=== PATIENT | male | born 1935 | race Caucasian/White ===

== ENCOUNTER 2016-06-26 09:28 | Day surgery (SDC) | payer MEDICARE ==
[~2016-06-26 09:28] MED LIST: ACETAMINOPHEN 1000MG/100 ML PREMIX IV ONE
[2016-06-26] MEDS ORDERED: FENTANYL PF 100MCG/2ML VIAL IV ONE (14:00)
[2016-06-26] MEDS ORDERED: MIDAZOLAM HCL 2MG/2ML VIAL IV ONE (14:00)
[2016-06-26] MEDS ORDERED: LIDOCAINE 2% MDV (20MG/ML) 20ML VIAL IV ONE (14:00)
[2016-06-26] MEDS ORDERED: PROPOFOL 10 MG/ML VIAL IV ONE (14:00)
[2016-06-26] MEDS ORDERED: LIDOCAINE PF 0.5% (5MG/ML) 50ML VIAL IV ONE (15:28)
--- NOTE | 2016-06-28 13:09 | Operative Note ---
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 OPERATIVE PROCEDURE: Decompression left median nerve of the wrist using 3.5 loupe magnification. Surgeon: Gaurav Schmidt D.O. DESCRIPTION: This 80-year-old male was taken to the Operating Room and placed in the supine position on the operating room table. A Kevin block anesthetic was administered and the left upper extremity was prepped with Hibiclens and draped in the usual sterile fashion. We then made an incision following the hypothenar crease in the left palm, from the level of the base of the webspace of the thumb to the flexor crease of the wrist. Dissection carried down through the skin and subcutaneous tissue. Hemostasis was obtained with the electrocautery. The palmar fascia was divided in line with the skin incision to expose the flexor retinaculum. This was punctured and then split to its proximal margin. The transverse carpal ligament was then transected along its ulnar border with the radial flap being raised to expose the entire median nerve under the transverse carpal ligament. The recurrent motor branch of the median nerve was identified and found to be intact. The nerve itself demonstrated mild hyperemia and mild hourglass deformity also was identified. Once the carpal canal had been completely decompressed, the wound was irrigated with lactated Ringer solution and the wound closed with interrupted 6-0 nylon sutures in the skin. Sterile dressings with plaster splint immobilization were applied with the wrist in slight dorsiflexion and the thumb in an adducted position. The tourniquet was then released. GROSS PATHOLOGY: This patient demonstrated hyperemia and mild hourglass deformity of the median nerve of the left wrist. DO TEODORO Hoyt
== END 2016-06-26 12:25 | disposition home or self-care (01) ==
LOC: SUR 09:28
PROVIDERS: ATTEND Orthopaedic Surgery
DX: G56.02 Carpal tunnel syndrome, left upper limb (principal); E11.9 Type 2 diabetes mellitus without complications; Z79.84 Long term (current) use of oral hypoglycemic drugs; I10 Essential (primary) hypertension; Z79.01 Long term (current) use of anticoagulants
CPT/HCPCS: 36416; 82948; 64721; 01810; J3010; J3490

== ENCOUNTER 2016-08-02 06:24 | Day surgery (SDC) | payer MEDICARE ==
[2016-08-02] MEDS ORDERED: HYDROCODONE/APAP 7.5/325MG TABLET PO ONE (13:46)
[2016-08-02] MEDS ORDERED: BUPIVACAINE 0.25% MPF 30ML VIAL IVP ONE (13:46)
[2016-08-02] MEDS ORDERED: BETAMETHASONE 6 MG/1 ML 5ML VIAL IM ONE (13:46)
[2016-08-02] MEDS ORDERED: PROPOFOL 10 MG/ML VIAL IV ONE (15:06)
[2016-08-02] MEDS ORDERED: FENTANYL PF 100MCG/2ML VIAL IV ONE (15:06)
--- NOTE | 2016-08-03 16:30 | Operative Note ---
DATE OF SURGERY: 08/02/2016 REFERRING PHYSICIAN: Randy Guaman MD PREOPERATIVE DIAGNOSES: 1. Carpal tunnel syndrome of the right wrist. 2. Osteoarthritis, left knee. POSTOPERATIVE DIAGNOSES: 1. Carpal tunnel syndrome of the right wrist. 2. Osteoarthritis, left knee. OPERATIVE PROCEDURES: 1. Decompression, right median nerve of the wrist using 3.5 loop magnification. 2. Injection, left knee. DESCRIPTION: This 80-year-old male was taken to the operating room and placed in the supine position on the operating room table where Kevin block anesthesia was used for the right upper extremity, and after some sedation, the left knee was prepped with Betadine and 2 mL of Celestone Soluspan and 2 mL of 0.25% Marcaine plain was injected into the left knee without difficulty. Sterile bandage was applied. We then proceeded with the right wrist, and the right wrist was prepped with Hibiclens and draped in the usual sterile fashion. The incision was made following the hypothenar crease in the level of the base of the webspace of the thumb, the flexor crease of the wrist, and dissection was carried down through the skin and subcutaneous tissue, the palmar fascia was divided in line with the skin incision to expose the flexor retinaculum. This was punctured and split to its proximal margin and then with the contents of the carpal tunnel under direct vision, the transverse carpal ligament was transected along its ulnar border. The radial flap was raised to expose the entire median nerve under the transverse carpal ligaments. The recurrent motor branch of the median nerve was identified and found to be normal. The nerve itself demonstrated some mild atrophy, but was otherwise unremarkable. The wound was irrigated with lactated Ringer's solution and the skin closed with interrupted 6 -0 nylon suture. Sterile dressings applied, and the tourniquet released. The plaster splint immobilization was applied with the wrist in slight dorsiflexion and the thumb in an adducted position. Patient was then taken to the recovery room in satisfactory condition. GROSS PATHOLOGY: The patient demonstrated osteoarthritis of the left knee as documented in the clinic and on x-rays. In addition, patient demonstrated carpal tunnel syndrome of the right wrist with mild atrophy of the right median nerve. CC: Randy Guaman MD [facility]ENTER[facility]ustín
== END 2016-08-02 09:05 | disposition home or self-care (01) ==
LOC: SUR 06:24
PROVIDERS: ATTEND Orthopaedic Surgery
DX: G56.01 Carpal tunnel syndrome, right upper limb (principal); M17.12 Unilateral primary osteoarthritis, left knee; E11.9 Type 2 diabetes mellitus without complications; Z79.84 Long term (current) use of oral hypoglycemic drugs; Z79.01 Long term (current) use of anticoagulants; I10 Essential (primary) hypertension; I48.91 Unspecified atrial fibrillation
CPT/HCPCS: 64721; 20610; 01810; J3010